=== PATIENT | male | born 1975 | race Caucasian/White ===

== ENCOUNTER → 2021-07-05 | Outpatient (CLI) | payer OTHER ==
--- NOTE | 2021-07-05 11:31 | RAD ---
EXAM: 2 views left ankle DATE: 07/05/2021 9:50 AM INDICATION: Reason: LEFT LAT ANKLE PAIN X SEVERAL MONTHS, NO KNOWN INJURY / Spl. Instructions: / His tory: . COMPARISON: No Prior FINDINGS: No evidence of acute fracture or dislocation. Ankle mortise is congruent. Talar dome is intact. Soft tissue swelling overlying the lateral malleolus. IMPRESSION: Soft tissue swelling overlying the lateral malleolus without evidence for acute fracture or dislocati on. Electronically signed by: Bobby Singleton MD (07/05/2021 11:28 AM) [id number]
== END ==
LOC: RAD 09:33
PROVIDERS: ATTEND Physician Assistant
DX: M79.89 Other specified soft tissue disorders (principal); M25.572 Pain in left ankle and joints of left foot
CPT/HCPCS: 73600